=== PATIENT | female | born 1990 | race Asian ===

== ENCOUNTER → 2017-03-07 | Outpatient (CLI) | payer OTHER | LOC: FIMAGING 13:59 | PROVIDERS: ATTEND Obstetrics & Gynecology | DX: Z34.01 Encounter for supervision of normal first pregnancy, first trimester (principal); Z3A.12 12 weeks gestation of pregnancy ==

== ENCOUNTER → 2017-04-25 | Outpatient (CLI) | payer OTHER | LOC: FIMAGING 10:02 | PROVIDERS: ATTEND Obstetrics & Gynecology | DX: Z34.01 Encounter for supervision of normal first pregnancy, first trimester (principal); Z3A.19 19 weeks gestation of pregnancy ==

== ENCOUNTER 2017-09-02 10:10 | Inpatient (IN) | payer OTHER ==
[2017-09-02] MEDS ORDERED: OXYTOCIN 20 UNIT in LR 1,000 ML IV PRN (13:21)
[2017-09-02] MEDS ORDERED: TERBUTALINE SULFATE 1 MG/ML VIAL IV PRN (13:21)
[2017-09-02] MEDS ORDERED: LR 1,000 ML IV PRN (13:21)
[2017-09-02] MEDS ORDERED: EPSOM SALT 454 GM TP PRN (13:21)
[2017-09-02] MEDS ORDERED: OLIVE OIL 118 ML BTL MISC PRN (13:21)
[2017-09-02] MEDS ORDERED: LIDOCAINE 1% 300 MG/30 ML SDV ONE (13:37)
[2017-09-02] MEDS ORDERED: AMMONIA AROMATIC 1 EACH AMP IH ONE (13:37)
[2017-09-02] MEDS ORDERED: OLIVE OIL 118 ML BTL ONE (13:37)
[2017-09-02] MEDS ORDERED: TERBUTALINE SULFATE 1 MG/ML VIAL ONE (13:38)
[2017-09-02] MEDS ORDERED: MISOPROSTOL 200 MCG TAB ONE (13:38)
[2017-09-02] MEDS ORDERED: OXYTOCIN 10 UNIT/ML VIAL ONE (13:38)
[2017-09-02 13:42] LABS: % IMMATURE GRANULYOCYTES 0.9 % (0.0-1.1); ABSOLUTE IMMATURE GRANULOCYTES 0.12 10^3/uL (0.00-0.10); ADD DIFF? NO; ADD MORPH? NO; ADD SCAN? NO; ATYPICAL LYMPHOCYTE FLAG 0 (0-99); FRAGMENT RBC FLAG 0 (0-99); HEMATOCRIT 41.9 % (38.0-47.0); LEFT SHIFT FLG 0 (0-99); LIPEMIA HEMOLYSIS FLAG 90 (0-99); MEAN CELL HEMOGLOBIN 31.4 pg (27.9-34.1); MEAN CELL HEMOGLOBIN CONCENTR. 35.8 g/dL (32.4-36.7); MEAN CELL VOLUME 87.8 fL (81.5-99.8); MEAN PLATELET VOLUME 10.8 fL (8.7-11.7); PLATELET CLUMPS FLAG 0 (0-99); PLATELET COUNT 153 10^3/uL (150-400); RED BLOOD CELL COUNT 4.77 10^6/uL (4.18-5.33)
[2017-09-02] MEDS ORDERED: fentaNYL 100 MCG/2 ML INJ IVP ONE (14:00)
--- NOTE | 2017-09-02 14:10 | PDGENHP ---
History and Physical - Chief Complaint labor pains - History of Present Illness Patient is a 27 year old at 38 3/7 weeks gestation who presents in active labor. +FM no vaginal bleeding + leaking of fluid History Information - Allergies/Home Medication List Allergies/Adverse Reactions: No Known Allergies Allergy (Unverified 09/02/17 10:45) Home Medications: 1 tab PO DAILY 09/02/17 [Last Taken Unknown] I have personally reviewed and updated: medical history - Past Medical History no pertinent PMH - Social History Smoking Status: Never smoked Review of Systems Review of Systems: Physical Exam Physical Exam: Constitutional: no apparent distress Cardiovascular: regular rate and rhythym, no murmur, rub, or gallop Respiratory: no respiratory distress, no rales or rhonchi Gastrointestinal: soft, non-tender abdomen, other (FHT 145 Cat 1 + accels contractions Q3 min SVE 3/80/0 vtx ) Skin: warm, normal color, no rashes or abrasions Musculoskeletal: full muscle strength Neurologic: AAOx3 Psychiatric: interacting appropriately, not anxious, thought process linear Lab Data & Imaging Review 09/02/17 13:28 WBC 12.67 10^3/uL (3.80-9.50) H 09/02/17 13:28 RBC 4.77 10^6/uL (4.18-5.33) 09/02/17 13:28 Hgb 15.0 g/dL (12.6-16.3) 09/02/17 13:28 Hct 41.9 % (38.0-47.0) 09/02/17 13:28 MCV 87.8 fL (81.5-99.8) 09/02/17 13:28 MCH 31.4 pg (27.9-34.1) 09/02/17 13:28 MCHC 35.8 g/dL (32.4-36.7) 09/02/17 13:28 RDW 13.0 % (11.5-15.2) 09/02/17 13:28 Plt Count 153 10^3/uL (150-400) 09/02/17 13:28 MPV 10.8 fL (8.7-11.7) 09/02/17 13:28 Neut % (Auto) 79.1 % (39.3-74.2) H 09/02/17 13:28 Lymph % (Auto) 14.4 % (15.0-45.0) L 09/02/17 13:28 [place] % (Auto) 5.0 % (4.5-13.0) 09/02/17 13:28 Eos % (Auto) 0.2 % (0.6-7.6) L 09/02/17 13:28 Baso % (Auto) 0.4 % (0.3-1.7) 09/02/17 13:28 Nucleat RBC Rel Count 0.0 % (0.0-0.2) 09/02/17 13:28 Absolute Neuts (auto) 10.02 10^3/uL (1.70-6.50) H 09/02/17 13:28 Absolute Lymphs (auto) 1.82 10^3/uL (1.00-3.00) 09/02/17 13:28 Absolute Monos (auto) 0.63 10^3/uL (0.30-0.80) 09/02/17 13:28 Absolute Eos (auto) 0.03 10^3/uL (0.03-0.40) 09/02/17 13:28 Absolute Basos (auto) 0.05 10^3/uL (0.02-0.10) 09/02/17 13:28 Absolute Nucleated RBC 0.00 10^3/uL (0-0.01) 09/02/17 13:28 Immature Gran % 0.9 % (0.0-1.1) 09/02/17 13:28 Immature Gran # 0.12 10^3/uL (0.00-0.10) H 09/02/17 13:28 Membrane Rupture POSITIVE (NEGATIVE) H 09/02/17 12:48 O+/Rubella immune/GBS negative Assessment & Plan Assessment: IUP at 38 3/7 weeks gestation Active labor SROM/+AMnisure O+/Rubella Immune/GBS negative Admit to labor and delivery Okay for pain medication Okay for epidural. Plan: Admit to labor and delivery Okay for pain medication Okay for epidural
[2017-09-02] MEDS ORDERED: PHENYLEPHRINE HCL 100 MCG/ML SYR ONE (14:41)
[2017-09-02] MEDS ORDERED: fentaNYL 2MCG/ML/BUP 0.1% RTU 100 ML BAG EP ONE (14:41)
[2017-09-02] MEDS ORDERED: PHENYLEPHRINE HCL 100 MCG/ML SYR IVP PRN (15:16)
[2017-09-02] MEDS ORDERED: ONDANSETRON 4 MG/2 ML VIAL IVP PRN (15:16)
[2017-09-02] MEDS ORDERED: fentaNYL 2MCG/ML/BUP 0.1% RTU 100 ML EP SCH (15:30)
[2017-09-02] MEDS ORDERED: LR 500 ML IV SCH (15:30)
--- NOTE | 2017-09-02 16:13 | OBPROG ---
Labor Progress Note Assessment/Plan: Assessment: Plan: Subjective/Intrapartum Course: 09/02/17 16:11 comfortable with epidural Objective: 09/02/17 13:28 Patient ABO/Rh O POSITIVE 09/02/17 13:28 - SVE Dilation (cm): 5 Effacement (%): 90 Station: 0 Membranes: SROM Amniotic Fluid Color: Clear - Contraction Pattern Assessment Current Contraction Pattern: Regular - FHR Assessment [place] FHR (bpm): 135 FHR Pattern Variability: Moderate FHR Category: 1 Oxytocin Orders Assessment - Pre-Induction/Augmentation Assessment Gestational Age: 38 week(s) and 3 day(s) ICD10 Worksheet Patient Problems: Problems Problem Status Onset Active labor at term Acute SROM (spontaneous rupture of membranes) Acute - ICD10 Problem Qualifiers (1) Active labor at term (2) SROM (spontaneous rupture of membranes)
--- NOTE | 2017-09-02 18:00 | OBPROG ---
Labor Progress Note Assessment/Plan: Assessment: IUP at 38 3/7 weeks Active labor Plan: Comfortable with epidural Continue current management 09/02/17 17:58 Subjective/Intrapartum Course: 09/02/17 16:11 comfortable with epidural Objective: 09/02/17 13:28 Patient ABO/Rh O POSITIVE 09/02/17 13:28 - SVE Dilation (cm): 9 Effacement (%): 100 Station: +1 Membranes: SROM Amniotic Fluid Color: Clear - Contraction Pattern Assessment Current Contraction Pattern: Regular - FHR Assessment [place] FHR (bpm): 135 FHR Pattern Variability: Moderate FHR Category: 1 - AP Antepartum Course: 09/02/17 17:59 Doing well feeling slight pressure Oxytocin Orders Assessment - Pre-Induction/Augmentation Assessment Gestational Age: 38 week(s) and 3 day(s) ICD10 Worksheet Patient Problems: Problems Problem Status Onset Active labor at term Acute SROM (spontaneous rupture of membranes) Acute - ICD10 Problem Qualifiers (1) Active labor at term (2) SROM (spontaneous rupture of membranes)
--- NOTE | 2017-09-02 21:56 | OBDEL ---
Info Type: Vaginal Presentation at Delivery: Vertex L&D Analgesia/Anesthesia Type: None GBS+: No Intrapartum Medications: Discontinued Medications Generic Name Dose Route Start Last Admin Trade Name Alice PRN Reason Stop Dose Admin Fentanyl 75 mcg 09/02/17 14:00 09/02/17 13:59 Sublimaze IVP 09/02/17 14:01 75 mcg ONCE ONE Administration - Hospital Course Intrapartum: 09/02/17 16:11 comfortable with epidural Indications for Delivery: Spontaneous Labor, SROM Vaginal Delivery - Delivery Provider Delivery Physician/CNM: Diana Tse - Labor and Delivery Onset of Contractions Date: 09/02/17 Onset of Contractions Time: 01:00 Onset of Contractions Type: Spontaneous Rupture of Membranes Date: 09/02/17 Rupture of Membranes Type: Spontaneous Amniotic Fluid Color: Clear Dilation Complete Date: 09/02/17 Dilation Complete Time: 19:56 Placenta Delivery Date: 09/02/17 Placenta Delivery Time: 20:33 Total Hours of Labor: 19 Non-surgical Procedures: FSE Episiotomy: Right Lateral Laceration: 2nd Degree Repair: 2-0 Vaginal Sponge Count Correct: Yes Vaginal Needle Count Correct: Yes Vaginal Sweep Performed: Yes EBL: 400 Delivery Events: Nuchal Cord (nuchal cord x 3) ICD10 Worksheet Patient Problems: Problems Problem Status Onset Active labor at term Acute SROM (spontaneous rupture of membranes) Acute - ICD10 Problem Qualifiers (1) Active labor at term (2) SROM (spontaneous rupture of membranes)
[2017-09-02] MEDS ORDERED: HYDROCODONE/APAP 5/325 TAB PO PRN (21:57)
[2017-09-02] MEDS: IBUPROFEN 600 MG TAB PO PRN (21:58)
[2017-09-03] MEDS: IBUPROFEN 600 MG TAB PO PRN ×3 (05:11→17:34)
--- NOTE | 2017-09-03 07:36 | OBPP ---
Progress Note Assessment/Plan: Assessment: Post day 1 s/p Normal spontaneous vaginal delivery stable afebrile Plan: continue routine post care 09/03/17 07:46 Subjective/ Course: 09/03/17 07:46 Doing well tolerating diet. Min pain and normal lochia Patient starting to breast feed Objective: 09/03/17 02:50 Patient ABO/Rh O POSITIVE 09/02/17 13:28 Temp Pulse Resp BP Pulse Ox 36.5 C 75 16 93/61 L 97 09/03/17 02:40 09/03/17 02:50 09/03/17 02:40 09/03/17 02:50 09/03/17 02:40 Uterine Position/Fundal Height: Umbilicus -2 Uterine Tone: Firm Physical Exam - Physical Exam Respiratory: chest non-tender Extremities: normal range of motion, non-tender, normal inspection Skin: normal color, warm/dry Neuro/Psych: no motor/sensory deficits, alert, normal mood/affect, oriented x 3
[2017-09-03] MEDS: DOCUSATE SODIUM 100 MG CAP PO PRN (09:16)
--- NOTE | 2017-09-03 10:00 | POSTANESTH ---
Post Anesthetic Evaluation Cardiovascular Status: Normal, Stable Respiratory Status: Normal, Stable Level of Consciousness/Mental Status: Can Participate in Eval Pain Control: Adequate, Prn Tx Ordered Nausea/Vomiting Control: Adequate, Prn Tx Ordered (s/p labor epidural, no complications)
[2017-09-03 20:07] VITALS: TEMP 98.2
[2017-09-04] MEDS: IBUPROFEN 600 MG TAB PO PRN ×3 (02:57→16:59)
--- NOTE | 2017-09-04 08:46 | OBGCSDC ---
General Delivery Information - General Info : 2 Para: 1 Abortions: 1 Type: Vaginal L&D Analgesia/Anesthesia Type: Epidural, Local Admission Date: 09/02/17 Labs: Patient ABO/Rh O POSITIVE 09/02/17 13:28 Hct 34.8 % (38.0-47.0) L 09/03/17 02:50 - Hospital Course Antepartum: 09/02/17 17:59 Doing well feeling slight pressure Intrapartum: 09/02/17 16:11 comfortable with epidural : 09/03/17 07:46 Doing well tolerating diet. Min pain and normal lochia Patient starting to breast feed 09/04/17 08:42 S) pt doing well, reports min bleeding and pain. She is taking ibuprofen. She is voiding and ambulating without difficulty. She is . FOB is @ BS and supportive. She denies any depression/sadness. O) VSS Constitutional: WNF, A&Ox3 HEENT: normocephalic, atraumatic, supple Heart: RRR, no murmur Chest: CTA-B Abdomen: soft, nontender Uterus: firm @ U-2 lochia: min rubra perineum: healing, sutures intact extremities: neg lety's sign, no edema neuro: grossly normal A) [id number] s/p PPD#2 P) routine PP care plan d/c home today cont pelvic rest/sitz baths Danger S&S discussed RTO in 4/6wks 09/04/17 08:43 Vaginal - Delivery Provider Delivery Physician/CNM: Diana Tse - Diagnosis Labor: Spontaneous Rupture of Membranes Type: Spontaneous Amniotic Fluid Color: Clear Episiotomy: Right Lateral Laceration: 2nd Degree Repair: 2-0 Delivery Events: Nuchal Cord (nuchal cord x 3) - Procedures Non-surgical Procedures: FSE - Delivery Non-surgical Procedures: FSE EBL: 400 [place] Data [place] Delivery Date: 09/02/17 Delivery Time: 21:30 COLTEN: 09/13/17 Gestational Age: 38 week(s) and 5 day(s) Sex of : Female [place] Weight (gm): 0 g Score (1 Min): 9 Score (5 Min): 9 Discharge Information - Discharge Information Condition: Good Instruction/Follow Up: Four Weeks, Six Weeks
[2017-09-04 09:38] VITALS: BP 122/81; PULSE 60; RESP 18; O2SAT 97
[2017-09-04] MEDS: DOCUSATE SODIUM 100 MG CAP PO PRN ×2 (10:38→16:58)
== END 2017-09-04 17:45 | disposition home or self-care (01) | DRG 775 ==
LOC: FLD 10:10 → OBSVTOIN 13:22 → FOB 09-03 00:03
PROVIDERS: ADMIT Obstetrics & Gynecology; ATTEND Obstetrics & Gynecology
DX: O69.82X0 Labor and delivery complicated by other cord entanglement, without compression, not applicable or unspecified (principal); Z37.0 Single live birth; Z3A.38 38 weeks gestation of pregnancy; O70.1 Second degree perineal laceration during delivery
CPT/HCPCS: J2370; J3010; J3105

== ENCOUNTER 2017-12-27 10:24 | Emergency (ER) | payer OTHER ==
[2017-12-27 10:37] VITALS: BP 115/52
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
[2017-12-27] MEDS ORDERED: HYDROCORTISONE 1% CREAM TP SCH (11:00)
== END 2017-12-27 12:08 | disposition home or self-care (01) ==
DX: T65.91XA Toxic effect of unspecified substance, accidental (unintentional), initial encounter (principal); T22.631A Corrosion of second degree of right upper arm, initial encounter; X19.XXXA Contact with other heat and hot substances, initial encounter; Y99.8 Other external cause status; Y93.89 Activity, other specified